=== PATIENT | female | born 1980 | race Caucasian/White ===

== ENCOUNTER 2016-06-05 19:13 | Emergency (ER) | payer SELFPAY ==
[2016-06-05] MEDS ORDERED: DIPHENHYDRAMINE HCL 25 MG CAPSULE ONE (20:07)
[2016-06-05] MEDS ORDERED: FAMOTIDINE 20 MG TABLET ONE (20:07)
[2016-06-05] MEDS ORDERED: PREDNISONE 20 MG TABLET ONE (20:07)
== END 2016-06-05 20:34 | disposition home or self-care (01) ==
LOC: ED 19:13
DX: R21 Rash and other nonspecific skin eruption (principal)
CPT/HCPCS: 99283 ×2; 82962; A9270 ×2; J7512